=== PATIENT | male | born 1995 | race Caucasian/White ===

== ENCOUNTER 2024-03-11 17:56 | Emergency (ER) | payer BC, SELFPAY ==
[2024-03-11 18:00] VITALS: BP 150/92; PULSE 88; TEMP 37.7; O2SAT 99; BMI 28.8
--- NOTE | 2024-03-11 18:03 | ECG_ITS ---
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
--- NOTE | 2024-03-11 18:03 | XR_ITS ---
The [address] [address] Patient Name: JAKI BRAY MRN: [id number] date: 1995 Sex: M Assigned Patient Location: ER Current Patient Location: ER Accession/Order Number: [id number] Exam Date: 03/11/2024 18:13 Report Date: 03/11/2024 18:42 At the request of: JEANINE KEITH Procedure: XR chest 2V EXAM: XR chest 2V HISTORY: cough COMPARISON: 01/27/2022 TECHNIQUE: Upright PA and lateral chest x-ray FINDINGS: The heart is not enlarged and the vasculature is not distended. No acute infiltrate, effusion or pneumothorax is identified. The osseous structures are grossly intact. XR/XR chest 2V IMPRESSION: No acute infiltrate or evidence of cardiac decompensation. The overall appearance of the chest is essentially unchanged. Electronically authenticated by: ELIZA MCCRAY Date: 03/11/2024 18:42
[2024-03-11 18:10] VITALS: PULSE 83
--- NOTE | 2024-03-11 18:10 | ED_ITS ---
HPI HPI - General Adult General Chief complaint: Chest Pain Stated complaint: CHEST PAINS Time Seen by Provider: 03/11/24 17:58 Source: patient Mode of arrival: walk-in Limitations: no limitations History of Present Illness HPI narrative: Patient presents to ED complaining of some tight breathing and chest pains. He said today he woke up not feeling the greatest and throughout the day he feels like his chest is tighter and he has been coughing a lot. He said even at work he was laughing with a friend and it sent him into a severe coughing fit. His temp is 99.9. Oxygen saturations 99. He also feels like he has some throat irritation. He does have a history of GERD and is not sure if it is from that. Patient denies any productive cough. Blood pressure is a little bit elevated but he seems slightly anxious as well. Patient states he has been working outside all day and it is very cold as well. No nausea or vomiting or abdominal pain. Patient states he feels like he just cannot get a big breath in. Pain or swelling. Patient states he feels more fatigued than normal today. Related Data Home Medications ?Medication ?Instructions ?Recorded ?Confirmed doxycycline hyclate 100 mg capsule 100 mg PO Q12H 03/11/24 03/11/24 mupirocin 2 % topical ointment 1 applic topical TID 03/11/24 03/11/24 omeprazole 20 mg capsule,delayed 20 mg PO DAILY 03/11/24 03/11/24 release Allergies Allergy/AdvReac Type Severity Reaction Status Date / Time amoxicillin Allergy Hives Verified 03/11/24 18:00 Opioid HPI Opioid Management Most Recent Opioid Data: Last Pain Scale 8 03/11/24 18:33 03/11/24 Last ED Pain Assessment 03/11/24 18:33 Review of Systems ROS Status of ROS 10 or more systems reviewed and unremark able except as noted in history and below PFSH PFSH Social History Little interest or pleasure in doing things: not at all Feeling down, depressed, or hopeless: not at all Exam Narrative Exam Narrative: Time Seen: [] Vital Signs: [Per nurse's notes.] General: [Alert] low-grade fever 99.9 Skin: [Warm, dry, no rash.] Head: [Normocephalic, atraumatic.] Neck: [Supple, trachea midline.] Eye: [Pupils are equal, round and reactive to light, extraocular movements are intact, normal conjunctiva.] Ears, nose, mouth and throat: oral mucosa moist. Cardiovascular: [Regular rate and rhythm, no murmur.] Respiratory: [Lungs are clear to auscultation, respirations are non-labored, breath sounds are equal.] Chest wall: [No tenderness, no deformity.] Gastrointestinal: [Soft, nontender, non distended, normal bowel sounds.] MSK: 5 out of 5 muscle strength x 4 extremities no calf pain or edema Lymphatics: [No lymphadenopathy.] Psychiatric: [Cooperative, appropriate mood & affect.] Neurological: [Alert and oriented to person, place, time, and situation, no focal neurological deficit observed.] Constitutional Vital Signs, click to edit/add: Last Vital Signs Temp 99.9 F 03/11/24 18:00 Pulse 88 03/11/24 18:00 Resp 20 03/11/24 18:00 BP 150/92 H 03/11/24 18:00 Pulse Ox 99 03/11/24 18:00 O2 Del Method Room Air 03/11/24 18:00 Course Vital Signs Vital signs: Vital Signs Temperature 99.9 F 03/11/24 18:00 Pulse Rate 88 03/11/24 18:00 Respiratory Rate 20 03/11/24 18:00 Blood Pressure 150/92 H 03/11/24 18:00 Pulse Oximetry 99 03/11/24 18:00 Oxygen Delivery Method Room Air 03/11/24 18:00 Temperature 99.9 F 03/11/24 18:00 Pulse Rate 88 03/11/24 18:00 Respiratory Rate 20 03/11/24 18:00 Blood Pressure 150/92 H 03/11/24 18:00 Pulse Oximetry 99 03/11/24 18:00 Oxygen Delivery Method Room Air 03/11/24 18:00 Medical Decision Making MDM Narrative Medical decision making narrative: Labs are negative for acute findings. Troponin negative x 1. Flu COVID strep are negative. Most likely a viral syndrome given the low-grade fever cough and some chest tightness. EKG was negative for acute and chest x-ray clear. He has been on doxycycline for a groin infection which has cleared up. No pneumonia. No diarrhea. Patient was given ibuprofen here for the chest pain and low-grade fever. Return to ED if worsening symptoms otherwise follow-up with your family doctor. Patient is comfortable care plan for home. Differential Diagnosis Differential Diagnosis: Viral syndrome flu COVID strep Lab Data Lab results reviewed: Yes I reviewed the patient's lab results Labs: Lab Results 03/11/24 03/11/24 03/11/24 Range/Units 18:05 18:25 18:29 WBC 5.8 (4.0-11.0) 10^3/uL RBC 4.49 L (4.70-6.10) 10^6/uL Hgb 14.5 (14.0-18.0) g/dL Hct 40.5 L (42.0-54.0) % MCV 90.2 (80.0-94.0) fL MCH 32.3 (25.9-34.0) pg MCHC 35.8 H (29.9-35.2) g/dL RDW 11.5 (11.0-15.0) % Plt Count 292 (150-450) 10^3/uL MPV 9.8 (9.5-13.5) fL Neut % (Auto) 62.7 (43.0-75.0) % Lymph % (Auto) 24.7 (20.5-60.0) % [place] % (Auto) 11.7 (1.7-12.0) % Eos % (Auto) 0.7 L (0.9-7.0) % Baso % (Auto) 0.2 (0.2-2.0) % Neut # (Auto) 3.6 (1.4-6.5) 10^3/uL Lymph # (Auto) 1.4 (1.2-3.8) 10^3/uL [place] # (Auto) 0.7 (0.3-0.8) 10^3/uL Eos # (Auto) 0.0 (0.0-0.7) 10^3/uL Baso # (Auto) 0.0 (0.0-0.1) 10^3/uL Abs Immat Gran (auto) 0.00 (0.00-0.03) 10^3/uL Imm/Tot Granulo (auto) 0.0 (0.0-0.5) % Sodium 139 (136-145) mmol/L Potassium 3.9 (3.5-5.1) mmol/L Chloride 101 (98-107) mmol/L Carbon Dioxide 32.0 (21.0-32.0) mmol/L Anion Gap 9.9 BUN 10.0 (7.0-18.0) mg/dL Creatinine 0.99 (0.70-1.30) mg/dL Est GFR ( Amer) >60 (>=60 mL/min/1.73m^2) Est GFR (Non-Af Amer) >60 (>=60 mL/min/1.73m^2) BUN/Creatinine Ratio 10.1 Glucose 98 (74-106) mg/dL Calcium 9.1 (8.5-10.1) mg/dL Total Bilirubin 0.8 (0.2-1.0) mg/dL AST 23 (15-37) U/L ALT 36 (16-63) U/L Alkaline Phosphatase 65 (46-116) U/L Troponin I High Sens 5.0 (4.0-76.1) pg/mL Total Protein 7.3 (6.4-8.2) g/dL Albumin 4.4 (3.4-5.0) g/dL Globulin 2.9 g/dL Albumin/Globulin Ratio 1.5 Influenza Type A Ag Negative Influenza Type B Ag Negative SARS-CoV-2 Ag (CV2AG) Negative (NEGATIVE) Streptococcus Screen Negative Imaging Data Chest x-ray: Radiologist's impression: ITS Impressions Chest X-Ray 03/11/24 18:03 IMPRESSION: No acute infiltrate or evidence of cardiac decompensation. The overall appearance of the chest is essentially unchanged. Electronically authenticated by: ELIZA MCCRAY Date: 03/11/2024 18:42 ECG Data Attestation: I personally reviewed and interpreted this ECG as follows: Interpretation: EKG INTERPRETATION Time: [] 1809 Rate: [] 83 Rhythm: _ [] Normal sinus rhythm ST segments: _ [] No acute ST elevation or depression T waves: _ [] Ectopy: _ [] P wave/RI interval: _ [] QRS interval: _ [] QT interval: _ [] Comparison: _ [] Comparison EKG date: [] Performed by: [self] Discharge Plan Discharge Chief Complaint: Chest Pain Clinical Impression: Chest pain, Viral syndrome Patient Disposition: Home, Self-Care Time of Disposition Decision: 18:54 Condition: Good Mode of Transportation: Private Vehicle Prescriptions / Home Meds: No Action doxycycline hyclate 100 mg capsule 100 mg PO Q12H mupirocin 2 % ointment 1 applic TOPICAL TID omeprazole 20 mg capsule,delayed release(DR/EC) 20 mg PO DAILY Print Language: Dutch Instructions: Chest Pain (ED), Viral Syndrome (ED) Referrals: Physician,Non-Staff, MD [Physician] - 1 week
[2024-03-11 18:22] LABS: Influenza Virus A Antigen Negative; Influenza Virus B Antigen Negative; Internal Control Within Normal Limits; SARS-CoV-2 Ag NEGATIVE (NEGATIVE)
[2024-03-11 18:32] LABS: Basophils Percent Auto 0.2 % (0.2-2.0); Eosinophils Percent Auto 0.7 % (0.9-7.0); Hematocrit 40.5 % (42.0-54.0); Hemoglobin 14.5 g/dL (14.0-18.0); Lymphocytes Absolute Auto 1.4 10^3/uL (1.2-3.8); Lymphocytes Percent Auto 24.7 % (20.5-60.0); Mean Corpuscular HGB Conc 35.8 g/dL (29.9-35.2); Mean Corpuscular Hemoglobin 32.3 pg (25.9-34.0); Mean Corpuscular Volume 90.2 fL (80.0-94.0); Mean Platelet Volume 9.8 fL (9.5-13.5); Monocytes Absolute Auto 0.7 10^3/uL (0.3-0.8); Monocytes Percent Auto 11.7 % (1.7-12.0); Neutrophils Absolute Auto 3.6 10^3/uL (1.4-6.5); Neutrophils Percent Auto 62.7 % (43.0-75.0); Platelet Count 292 10^3/uL (150-450); Red Blood Count 4.49 10^6/uL (4.70-6.10); Red Cell Distribution Width 11.5 % (11.0-15.0); White Blood Count 5.8 10^3/uL (4.0-11.0)
[2024-03-11 18:39] LABS: Internal Control Within Normal Limits; Strep A Antigen Screen Negative
[2024-03-11 18:49] LABS: Alanine Aminotransferase 36 U/L (16-63); Albumin Globulin Ratio 1.5; Albumin Level 4.4 g/dL (3.4-5.0); Alkaline Phosphatase 65 U/L (46-116); Anion Gap 9.9; Aspartate Amino Transferase 23 U/L (15-37); BUN Creatinine Ratio 10.1; Bilirubin Total 0.8 mg/dL (0.2-1.0); Calcium 9.1 mg/dL (8.5-10.1); Chloride 101 mmol/L (98-107); Estimated GFR (African America >60 (>=60 mL/min/1.73m^2); Estimated GFR (Non-African Ame >60 (>=60 mL/min/1.73m^2); Globulin 2.9 g/dL; Glucose 98 mg/dL (74-106); Potassium 3.9 mmol/L (3.5-5.1); Sodium 139 mmol/L (136-145); Total Protein 7.3 g/dL (6.4-8.2)
[2024-03-11] MEDS: IBUPROFEN 600 MG TABLET PO (19:02)
[2024-03-11 19:07] VITALS: BP 131/87; PULSE 90; O2SAT 98
== END 2024-03-11 19:13 | disposition home or self-care (01) ==
PROVIDERS: Emergency Provider Emergency Medicine; Family Provider Family Medicine; PCP Family Medicine
DX: R07.9 Chest pain, unspecified (principal); B34.9 Viral infection, unspecified; R50.9 Fever, unspecified
CPT/HCPCS: 36415; 71046; 80053; 84484; 85025; 87070; 87804; 87811; 87880; 93005; 99285